=== PATIENT | female | born 1945 | race Caucasian/White ===

== ENCOUNTER → 2019-08-31 | Day surgery (SDC) | payer MEDICARE ==
[~2019-08-31] MED LIST: LIDOCAINE 1%/EPINEPHRINE INJ 20 ML VIAL ONE; LIDOCAINE 2% INJ (20 MG/ML) 20 ML MDV ONE
--- NOTE | 2019-09-03 14:47 | RADIOLOGY REPORT (SQ) ---
EXAM DESCRIPTION: STEREO BREAST BX; LEFT DIAGNOSTIC MAMMO W/CAD COMPLETED DATE/TIME: 09/02/2019 1:41 pm; 08/31/2019 12:08 pm REASON FOR STUDY: ABNORMAL FINDINGS ON DX IMAGING OF BREAST (R92.8); LT BREAST POST STEREO R92.8 OT H ABN AND INCONCLUSIVE FINDINGS ON DX IMAGING OF MANN R92.0 MAMMOGRAPHIC MICROCALCIFICATION FOUND ON DX IMAGING OF COMPARISON: MAMMOGRAMS 08/04/2019 TECHNIQUE: Vacuum-assisted stereotactic-guided biopsy of the lesion in the left breast. Serial progr ess stereotactic and single digital images acquired. PROCEDURE: The procedure was discussed with the patient, including possible complications such as bleeding, infection, nondiagnostic sample or possible findings such as atypical ductal hyperplasia wh ich would require additional surgery. Possible clip placement was explained. The patient agreed t o the procedure. The patient was placed prone on the stereotactic table. The lesion in the breast was localized ster eotactically. The skin of the breast was prepped in sterile fashion. Superficial and deep local an esthesia was provided. A small incision was made in the skin and the biopsy probe was advanced to t he target. Using the vacuum-assisted core biopsy device, multiple core specimens were obtained. Continuous low dose infusion of local anesthesia was used during the procedure. A specimen radiograph was obtained. The radiograph demonstrated calcifications of concern in the bio psy tissue. Using hmopcven-iy-kdanclot technique a Barrel clip was deployed at the biopsy site. Mammographic image confirmed presence of the clip. The probe was then removed and hemostasis obtained with manua l compression. A compression bandage was applied. Postoperative instructions were explained to th e patient. POST-PROCEDURE TWO VIEW DIGITAL MAMMOGRAM: An additional two view mammogram was recorded in the [facility] mammographic suite. Marker clip is present at the biopsy site. LIMITATIONS: None. FINDINGS: PATHOLOGY: Benign microcalcifications, no atypia, no malignancy. Sclerosing fibroadenoma. CONCORDANT: Yes. POST PROCEDURE MAMMOGRAMS FOR MARKER PLACEMENT: Yes IMPRESSION: SUCCESSFUL STEREOTACTIC-GUIDED BIOPSY OF THE LESION IN THE LEFT BREAST. BIOPSY RESULTS ARE CONCORDANT WITH IMAGING FINDINGS. BI-RADS 2, benign findings of sclerosing fibroadenoma. Please return to yearly bilateral mammographi c screening in July 2020 FOLLOW-UP: Please return to yearly bilateral screening mammography/ tomosynthesis in July 2020 NOTIFICATION: THE PATIENT HAS BEEN PERSONALLY NOTIFIED OF THE RESULTS BY THE BREAST INTERVENTIONAL TE AM. COMMENT: Patient medication list reviewed: Yes- Quality ID# [id number]:Eligible professional attests to doc umenting in the medical record they obtained, updated, or reviewed the patient's current medications. TECHNICAL DOCUMENTATION: JOB ID: [id number] 2010 [email or web address]- All Rights Reserved Reading location - IP/workstation name: [email or web address]
== END ==
LOC: RAD 10:21
PROVIDERS: ATTEND Surgery
DX: N60.22 Fibroadenosis of left breast (principal); R92.8 Other abnormal and inconclusive findings on diagnostic imaging of breast; R92.0 Mammographic microcalcification found on diagnostic imaging of breast; Z79.899 Other long term (current) drug therapy; I10 Essential (primary) hypertension; G20 Parkinson's disease; Z87.891 Personal history of nicotine dependence
CPT/HCPCS: 88305 ×2; 88342; 19081; 77065; J3490 ×2